=== PATIENT | male | born 1980 | race African-American/Black ===

== ENCOUNTER 2020-12-04 04:19 | Emergency (ER) | payer OTHER ==
[~2020-12-04] VITALS: Ht 185.4 cm; Wt 75.0 kg
[2020-12-04] MEDS ORDERED: PROPARACAINE HCL 0.5% 15 ML OPHTHALMIC SOLUTION OU ONE (04:30)
[2020-12-04 04:34] VITALS: BP 106/92
== END 2020-12-04 05:32 | disposition home or self-care (01) ==
LOC: EMS 04:23
DX: T59.3X3A Toxic effect of lacrimogenic gas, assault, initial encounter (principal); Y92.89 Other specified places as the place of occurrence of the external cause
CPT/HCPCS: 99283